=== PATIENT | male | born 1985 | race Two or more races ===

== ENCOUNTER → 2020-10-29 | Outpatient (CLI) | payer BC ==
--- NOTE | 2020-10-29 12:31 | KCIC ---
EXAM: MRI RIGHT KNEE DATE: 10/29/2020 8:12 AM CLINICAL INDICATION: Right knee pain, swelling, crepitus COMPARISON: 10/12/2020 TECHNIQUE: Multiplanar, multisequence MRI of the RIGHT knee was performed without contrast. FINDINGS: No knee joint effusion. No significant Craig's cyst. ACL and PCL are intact. MCL, fibular collateral ligament, biceps femoris and IT band are intact. Popl iteus is normal in signal and morphology, intact. Extensor mechanism is intact. Borderline lateral patellar tracking. Mild suprapatellar fat pad edema may be seen with anterior knee pain/impingement. Medial meniscus: Intact Lateral meniscus: Longitudinal tear through the anterior horn extends to the anterior horn-body segme nt. No acute fracture or osteonecrosis. Tricompartmental osteophytes are seen. Full-thickness cartilage d efect is seen at the lateral patellar facet extending into the apex with subchondral edema and cystic change. IMPRESSION: 1. Longitudinal tear anterior horn-body lateral meniscus 2. Right knee joint osteoarthritis with tricompartmental osteophytes and patellofemoral prominent ch ondromalacia. 3. Mild lateral patellar tracking. Electronically signed by: Aakash Parker MD (10/29/2020 12:28 PM) [id number]
== END ==
LOC: KCIC MRI 08:01
PROVIDERS: ATTEND Orthopaedic Surgery
DX: S83.281A Other tear of lateral meniscus, current injury, right knee, initial encounter (principal); M17.11 Unilateral primary osteoarthritis, right knee; M25.761 Osteophyte, right knee; M94.261 Chondromalacia, right knee; X58.XXXA Exposure to other specified factors, initial encounter; Y93.89 Activity, other specified; Y92.89 Other specified places as the place of occurrence of the external cause; Y99.8 Other external cause status
CPT/HCPCS: 73721